=== PATIENT | female | born 1945 | race Caucasian/White ===

== ENCOUNTER 2017-09-19 14:18 | Outpatient (CLI) | payer MEDICARE, BC ==
[2017-09-19] MEDS ORDERED: Gadobenate Dimeglumine 529 MG/1 ML (20ML VIAL) ONE (16:14)
--- NOTE | 2017-09-19 16:17 | MRI ---
THORACIC SPINE MRI NONCONTRAST: Date: 09/19/17 INDICATION: Thoracic spine pain, bilateral lower extremity weakness. FINDINGS: There is no acute compression fracture or subluxation of the thoracic spine. Multilevel end plate deg enerative change with disc space narrowing and marginal osteophyte formation present. There is no int rinsic expansile lesion of the thoracic spinal cord. No obvious pathologic intramedullary signal alte ration. There are multilevel mild disc osteophyte complexes which efface the ventral thecal sac without signi ficant cord deformity. There is no high grade foraminal stenosis. No acute paraspinal soft tissue edema. There is minimal pleural based fluid along the posteromedial l eft hemithorax. Incidental note of right renal cyst formation, incompletely imaged on the basis of th is exam. IMPRESSION: 1. Mild multilevel degenerative change of the thoracic spine with multilevel disc osteophyte formati on effacing ventral thecal sac, although no significant degree of central canal stenosis or cord defo rmity. 2. No acute compression fracture or subluxation. POS: [facility]
--- NOTE | 2017-09-19 18:23 | MRI ---
LUMBAR SPINE WITH AND WITHOUT IV CONTRAST 09/19/17 HISTORY: Lumbar radiculopathy. The patient states she is losing weight. Bilateral leg weakness. History of kiana or lumbar surgery. FINDINGS: There is a 1 cm increased T2 and corresponding decreased T1 weighted signal intensity lesion in the m id portion of the right kidney. Postcontrast images suggest enhancement of this small mass which is w orrisome for neoplastic process such as renal cell carcinoma. There is a subcentimeter increased T2 w eighted signal intensity lesion at the inferior pole right kidney with a larger 2.2 cm increased T2 w eighted signal intensity lesion at the superior pole right kidney both of which demonstrate no enhanc ement and are most suggestive of right renal cysts. There is right convex scoliosis of the lumbar spine. Multilevel degenerative changes are present. The re are multiple increased T1 and T2 weighted signal intensity foci seen in multiple lumbar lower thor acic vertebral bodies demonstrating characteristics most compatible with multiple hemangiomas. The la rgest hemangioma is seen within the L5 vertebral body which measures 2.1 cm craniocaudal x 2.9 cm tra nsverse x 3.3 cm AP. This hemangioma does extend into the right pedicle as well as the right transver se process of the L5 vertebral body. The conus medullaris is normal in appearance and terminates at the level of the L1 vertebral body. T10-11, T11-12 and T12-L1 levels: There are mild broad based disc osteophyte complexes at these level s which narrow the ventral subarachnoid spacs. Axial imaging was not obtained through the T10-11 and T11-12 levels, but there is suggestion of moderate bilateral neural foraminal narrowing at the T10-11 level. Neural foramina at the T11-12 and T12-L1 levels are patent. L1-2 level: There is loss of intervertebral disc height. There is a broad based disc osteophyte compl ex and facet hypertrophic changes seen primarily on the left. There is only slight encroachment on th e inferior aspect of the right neural foramen with what appears to be moderate left sided neural fora oh narrowing, primarily related to bony encroachment and scoliotic curvature. There is mild mass e ffect on the left lateral aspect of the thecal sac due to facet hypertrophic changes. L2-3 level: There is disc desiccation with loss of intervertebral disc height and mild end plate dege nerative changes. There is a broad based disc osteophyte complex and facet hypertrophic changes. Ther e is mild generalized narrowing of the central spinal canal with mild bilateral neural foraminal narr owing present. L3-4 level: There is loss of intervertebral disc height. There is a broad based disc osteophyte compl ex and facet hypertrophic changes. There is generalized mild narrowing of the central spinal canal. T here is moderate left and mild to moderate right sided neural foraminal narrowing. L4-5 level: There is trace retrolisthesis of L4 on L5. There is broad based disc osteophyte complex a nd facet hypertrophic changes primarily on the right. There is mild to moderate left and severe right sided neural foraminal narrowing with majority of the foraminal narrowing secondary to prominent fac et hypertrophic changes. There is mild mass effect on the right lateral aspect of the thecal sac. Pos tsurgical changes related to left laminotomy defect are present. L5-S1 level: There is no significant disc bulge or disc herniation. There are moderate facet hypertro phic changes present. There is mild right sided neural foraminal narrowing, but the left neural leydi en is patent. Central spinal canal demonstrates no significant narrowing. Postsurgical changes relate d to left laminotomy defect are present. There is a 1.3 cm increased T2 weighted signal intensity focus posterior to the S2 vertebral body wit hin the central canal likely related to small Tarlov cysts. IMPRESSION: 1. Approximately 1 cm enhancing lesion within the right kidney worrisome for neoplastic process such as renal cell carcinoma. Urology consultation is suggested. 2. Multilevel degenerative changes seen throughout the lower thoracic and involving the lumbar s pine. There is prominent right convex scoliosis of the thoracolumbar spine. 3. Multiple hemangiomas within lumbar vertebral bodies. The largest hemangioma in the L5 vertebr al body extends into the right pedicle and right transverse process of the vertebral body. 4. Postsurgical changes related to left laminotomy defect at the L4-5 and L5-S1 levels with enha ncement in the region of the defects suggesting scar tissue which does abut the left posterolateral a spect of the thecal sac at these levels, but enhancement does not extend lateral to the thecal sac. POS: ALANA
== END 2017-09-19 14:19 | disposition home or self-care (01) ==
LOC: TBSIIMAG 14:18
PROVIDERS: ATTEND Neurological Surgery
DX: M47.26 Other spondylosis with radiculopathy, lumbar region (principal); M47.24 Other spondylosis with radiculopathy, thoracic region; N28.9 Disorder of kidney and ureter, unspecified; M41.9 Scoliosis, unspecified; D18.09 Hemangioma of other sites; Z98.890 Other specified postprocedural states
CPT/HCPCS: 72146; 72158; 82565; A9579

== ENCOUNTER 2017-11-06 09:04 | Outpatient (CLI) | payer MEDICARE, BC ==
[2017-11-06 10:40] LABS: Anion Gap 9 mmol/L (10-20); BUN (Urea Nitrogen) 14 mg/dL (9.8-20.1); Calc. Creatinine Clearance 0 mL/min (70-130); Calcium 9.9 mg/dL (7.8-10.44); Carbon Dioxide 27 mmol/L (23-31); Chloride 107 mmol/L (98-107); Estimated GFR-MDRD 66; Glucose 87 mg/dL (83-110); Sodium 139 mmol/L (136-145)
--- NOTE | 2017-11-06 11:30 | CT ---
CT OF ABDOMEN WITH AND WITHOUT CONTRAST ENHANCEMENT: HISTORY: Followup of enhancing lesion seen within right kidney on recent MRI study. COMPARISON: MRI study done at [facility] dated 09/19/17 and also an MRI of the lumbar spine which was performed at [facility] 12/01/10. Unfortunately, on that previous 2010 MRI study that portion of the kidney was not definitively included on the examination. The lung bases are clear. The liver shows no focal abnormalities. There is a hypodensity within the spleen. This measures 8-9 mm in size. It shows questionable minimal enhancement. Difficult to definitely characterize as a c yst, possibly a small hemangioma. The pancreas and gallbladder regions appear unremarkable. The right and left adrenal glands are normal in appearance. The left kidney is normal in size and ap pearance. There is an upper pole right renal cyst that does not show any enhancement. It measures 2 cm. The lesion in question is along the anterior mid pole cortex of the right kidney. It measures approximately 14 mm in size. On the precontrast images, it has CT Hounsfield unit numbers of 20 incr easing to 36 on the initial precontrast images and on the delayed contrast images measuring 49. Ther e is no significant periaortic or mesenteric adenopathy. Partially visualized is some evidence of sigmoid diverticulosis. Review of osseous structures showed marked arthritic changes of the spine. Vertebral body hemangioma of L5 has been previously noted. IMPRESSION: 1. Small approximately 1.4 cm enhancing lesion involving the anterior pole cortex of the right kidne y. Although its small size makes enhancement characteristics difficult to assess, the fact that it d oes also appear to enhance on MRI study makes this suspicious for early malignancy. POS: ALANA
[2017-11-06] MEDS ORDERED: Iopamidol 370 76% 100 ML VIAL ONE (14:51)
== END 2017-11-06 09:05 | disposition home or self-care (01) ==
LOC: CT 09:04
PROVIDERS: ATTEND Urology
DX: N28.89 Other specified disorders of kidney and ureter (principal)
CPT/HCPCS: 36415; 74170; 80048; 82565

== ENCOUNTER 2018-02-06 09:15 | Outpatient (CLI) | payer MEDICARE, BC ==
[2018-02-06] MEDS ORDERED: ISOVUE-370 76%-LOCM 1 ML ONE (14:44)
== END 2018-02-06 09:16 | disposition home or self-care (01) ==
LOC: BICCT 09:15
PROVIDERS: ATTEND Urology
DX: N28.89 Other specified disorders of kidney and ureter (principal); R35.0 Frequency of micturition; R33.9 Retention of urine, unspecified
CPT/HCPCS: 36415; 74170; 80048; 81001; 87086

== ENCOUNTER 2018-05-21 10:21 | Outpatient (CLI) | payer MEDICARE, BC ==
--- NOTE | 2018-05-21 16:07 | CT ---
ABDOMEN CT SCAN WITH AND WITHOUT IV CONTRAST: Date: 05/21/18 HISTORY: Follow-up right renal mass. COMPARISON: 02/06/18 and 11/06/17. FINDINGS: There is again noted to be a minimally enhancing mass, approximately 1.2 cm, involving the anterior c ortex of the right mid kidney, showing no significant change from the prior study. Right upper pole r enal cyst. No renal hydronephrosis. No evidence for adenopathy. No liver mass. IMPRESSION: Overall stable 1.2 cm diameter mass involving the anterolateral right renal cortex in the mid portion , unchanged from prior studies. No new process. POS: ALANA
== END 2018-05-21 10:22 | disposition home or self-care (01) ==
LOC: BICCT 10:21
PROVIDERS: ATTEND Urology
DX: N28.89 Other specified disorders of kidney and ureter (principal)
CPT/HCPCS: 74170; 82565

== ENCOUNTER 2018-11-05 09:47 | Outpatient (CLI) | payer MEDICARE, BC ==
--- NOTE | 2018-11-05 10:35 | ULT ---
US Renal Bilateral STANDARD: 11/05/2018 12:00 AM CLINICAL HISTORY: Renal mass. STUDY: Renal ultrasound COMPARISON: CT abdomen/pelvis 05/21/2018 FINDINGS: Right kidney: Echogenicity: Normal. Masses/cysts: 2.3 cm anechoic cyst in the upper pole. 1.4 cm anechoic lesion in the midportion likel y represents a cyst. Hydronephrosis: None. Calcifications: None. Length: 8.8 cm Left kidney: Echogenicity: Normal. Masses/cysts: None. Hydronephrosis: None. Calcifications: None. Length: 8.9 cm Limited visualization of the urinary bladder is unremarkable. IMPRESSION: Right renal cysts
== END 2018-11-05 09:48 | disposition home or self-care (01) ==
LOC: BICULT 09:47
PROVIDERS: ATTEND Urology
DX: N28.89 Other specified disorders of kidney and ureter (principal); R35.0 Frequency of micturition; N28.1 Cyst of kidney, acquired
CPT/HCPCS: 36415; 76770; 80048

== ENCOUNTER 2020-07-17 08:42 | Outpatient (CLI) | payer MEDICARE, BC ==
[2020-07-17] MEDS ORDERED: Iopamidol 370 76% 100 ML VIAL ONE (11:27)
== END 2020-07-17 08:43 | disposition home or self-care (01) ==
LOC: BICCT 08:42
PROVIDERS: ATTEND Urology
DX: N28.89 Other specified disorders of kidney and ureter (principal)
CPT/HCPCS: 74177; 82565; Q9967

== ENCOUNTER 2020-08-12 10:29 | Outpatient (CLI) | payer MEDICARE, BC ==
[2020-08-12] MEDS ORDERED: Iopamidol 370 76% 100 ML VIAL ONE (12:04)
== END 2020-08-12 10:30 | disposition home or self-care (01) ==
LOC: CT 10:29
PROVIDERS: ATTEND Urology
DX: I31.9 Disease of pericardium, unspecified (principal); N28.89 Other specified disorders of kidney and ureter; N28.9 Disorder of kidney and ureter, unspecified; R91.8 Other nonspecific abnormal finding of lung field
CPT/HCPCS: 71260; 78306; 82565; A9503; Q9967